=== PATIENT | male | born 1935 | race Caucasian/White ===

== ENCOUNTER 2023-06-26 15:11 | Observation (INO) | payer OTHER, SELFPAY ==
[2023-06-26] VITALS (14 sets, daily range): BP systolic 97–126; BP diastolic 47–93; BMI 26.0; BMI 26.3
--- NOTE | 2023-06-26 09:46 | ED.GENMED ---
History of Present Illness
General
Chief Complaint: Abdominal Symptoms
Time Seen by Provider: 06/26/23 09:28
Travel History
Have you had any contact with someone who has COVID-19?: No
Do you have any symptoms of coronavirus? Fever > 100 degrees, chills, cough, shortness of breath, sore throat, loss of taste or smell, muscle aches, or headache?: No
History of Present Illness
History of Present Illness:
88-year-old male with history of A-fib, GERD, hypertension, and hypothyroidism presents to the emergency department for evaluation of intractable nausea, vomiting, and diarrhea for the past 3 days. Over the past 48 hours he has become increasingly
disoriented. He is reporting generalized upper abdominal pain as well. Spouse did note some coughing and nasal congestion associated with the symptoms. No reported fevers at home. She notes that he does have underlying esophageal achalasia and
most recently underwent Botox injections of the esophagus in March
Review of Systems
Review of Systems
Allergies reviewed?: Yes
All Other Systems: ROS reviewed and negative except as documented in HPI and ROS
Phy Exam
Physical Exam
Physical Exam:
GEN: Well appearing, NAD, WDWN
Eyes: PERRLA, EOMs intact, no scleral icterus
HENT: NCAT, oral mucosa moist
Lungs: CTAB, no wheezes, rales, rhonchi, normal chest wall excursion
Cardiac: RRR, no M/R/G, no peripheral edema. Radial pulses 2+ bilat
Abdomen: Soft, mild-moderate RUQ/epigastric tenderness, no rigidity
Neuro: AO x 3
MSK: No gross deformity or ecchymosis. No edema. No digital clubbing
Skin: No rashes, petechiae. Normal color, no pallor or jaundice.
Psych: Calm, cooperative, proper hygiene
Course
Orders/Labs/Results
Orders:
Orders
06/26/23 09:38
0.9% Sodium Chloride 1000 ml [Nss] 1,000 ml IV BOLUS
06/26/23 09:39
Urinalysis Reflex To Culture Urgent
06/26/23 10:10
COVID-19 Antigen Urgent
Source: Nasal Swab
Complete Blood Count/With Diff Urgent
Comprehensive Metabolic Panel Urgent
Lactic Acid Urgent
Lipase Urgent
Influenza A+B Rapid Molecular Urgent
NUZHAT Source: Nasal Swab
Specimen Description:
06/26/23 11:26
CT Abd/Pel (IV only)-DH only Urgent
Comment:
Reason For Exam: upper abd pain, N/V/D
06/26/23 13:06
Ondansetron Injectable [Zofran] 4 mg IV NOW STA
Pantoprazole [Protonix IV] 40 mg IV NOW STA
Sucralfate Suspension [Carafate Suspension] 1 gm PO NOW STA
Abnormal Lab Results
06/26/23
10:10
WBC 14.6 H 10^3/uL
(4.8-10.8)
MPV 11.6 H fL
(7.4-10.4)
Abs Immat Gran (auto) 0.1 H 10^3/uL
(0-0.05)
Absolute Neuts (auto) 12.3 H 10^3/uL
(1.4-6.5)
Absolute Lymphs (auto) 1.0 L 10^3/uL
(1.2-3.4)
Absolute Monos (auto) 1.2 H 10^3/uL
(0.1-0.6)
Neutrophils % 84.5 H %
(42.2-75.2)
Lymphocytes % 6.6 L %
(20.5-51.1)
BUN 39 H mg/dl
(9-20)
Glucose 112 H mg/dl
(70-99)
Lactic Acid 2.1 H mmol/L
(0.7-2.0)
AST 62 H U/L
(17-59)
06/26/23 10:10
06/26/23 10:10
Vital Signs
Initial and Last Documented VS:
Initial Vital Signs
Temp Pulse Resp BP Pulse Ox
98.7 F 70 16 116/67 98
06/26/23 09:05 06/26/23 09:05 06/26/23 09:05 06/26/23 09:05 06/26/23 09:05
Last Documented Vital Signs
Temp Pulse Resp BP Pulse Ox
98.7 F 73 18 106/64 97
06/26/23 09:05 06/26/23 12:00 06/26/23 12:00 06/26/23 12:00 06/26/23 10:15
MDM/Problems Addressed
MDM/Problems Addressed:
88-year-old male presents with symptoms of nausea vomiting diarrhea for the past several days. Workup is suggestive of viral etiology such as gastroenteritis particular given lack of acute pathology on CT scan. Patient was given a p.o. trial but
continued to have blood-tinged vomiting concerning for a component of esophagitis. Given his cognitive changes and his difficulty with tolerating p.o. fluids we will admit the patient to the hospital service for further IV fluids and management
with PPIs.
*Critical Care Note
Total Time (30-74mins, 75-104mins- exclusive of procedures): Not Applicable
ED Attending Note
-
Portions of this chart may have been created with voice recognition software.� Occasional wrong word or��sound alike� substitutions may have occurred due to the inherent limitations of voice recognition software.
Discharge Plan
Departure
Patient Disposition: Admit
Date of Disposition: 06/26/23
Time of Disposition: 13:35
Admit to: Med/Surg
Presentation/result/management discussed w/ accepting MD/DO: Hospitalist
Discharge Problem:
Gastroenteritis, Esophagitis
Prescriptions:
No Action
sotalol 80 mg Tablet
80 mg PO BID
omeprazole 40 mg Capsule,Delayed Release(Dr/Ec)
40 mg PO DAILY
levothyroxine 25 mcg Tablet
25 mcg PO DAILY
pravastatin 20 mg Tablet
20 mg PO QPM
cholecalciferol (vitamin D3) [Vitamin D3] 125 mcg (5,000 unit) Tablet
125 mcg PO DAILY
Eliquis 5 mg Tablet
5 mg PO BID
Centrum Adult 50 Plus 80 mcg Tablet,Chewable
1 tab PO DAILY
PreserVision AREDS-2 250-90-40-1 mg Tablet,Chewable
1 tab PO BID
cyanocobalamin (vitamin B-12) [Vitamin B-12] 1,000 mcg Tablet
1,000 mcg PO DAILY
Referrals:
Schuyler Trejo CRNP [Family Provider] -
Interventions
Interventions:
*General Assessment Last Done: 06/26/23 09:51
ED- Fall Risk Assessment Last Done: 06/26/23 09:51
*ED COVID-19 Vaccine History Last Done: 06/26/23 09:05
NR-Oxtwnx-Agzoamfojg Assessment Last Done: 06/26/23 09:51
[2023-06-26] MEDS: NSS 1000 IV ×3 (10:05→18:52)
[2023-06-26 10:23] LABS: % Basophils 0.1 % (0-2); % Eosinophils 0.1 % (0-6); % Immature Granulocytes 0.3 % (0-0.5); % Lymphocytes 6.6 % (20.5-51.1); % Monocytes 8.4 % (1.7-9.3); % Neutrophils 84.5 % (42.2-75.2); Absolute Immature Granulocytes 0.1 10^3/uL (0-0.05); Absolute Monocytes 1.2 10^3/uL (0.1-0.6); Absolute Neutrophils 12.3 10^3/uL (1.4-6.5); Hematocrit 46.4 % (39.0-52.0); Hemoglobin 15.5 g/dL (13.0-18.0); Mean Corp Hgb Conc. 33.4 g/dL (33.0-37.0); Mean Corpuscular Hgb 28.5 pg (27.0-31.0); Mean Corpuscular Volume 85.3 fL (80.0-94.0); Mean Platelet Volume 11.6 fL (7.4-10.4); Nucleated Red Blood Cells % 0 % (-); Platelet Count 149 10^3/uL (130-400); Red Blood Cell Count 5.44 10^6/uL (4.70-6.10); Red Cell Dist. Width 14.5 % (11.5-14.5); White Blood Cell Count 14.6 10^3/uL (4.8-10.8)
[2023-06-26 10:33] LABS: Lactic Acid 2.1 mmol/L (0.7-2.0)
[2023-06-26 10:34] LABS: ALT (SGPT) 29 U/L (0-50); AST (SGOT) 62 U/L (17-59); Albumin 4.6 g/dl (3.5-5.0); Alkaline Phosphatase 87 U/L (38-126); Blood Urea Nitrogen 39 mg/dl (9-20); Calcium 9.8 mg/dl (8.4-10.2); Carbon Dioxide 25 mmol/L (22-30); Chloride 104 mmol/L (98-107); Estimated Creatinine Clearance 45 ml/min; Glucose 112 mg/dl (70-99); Lipase 116 U/L (23-300); Potassium 3.9 mmol/L (3.5-5.1); Sodium 138 mmol/L (135-145); Total Bilirubin 0.7 mg/dl (0.2-1.3); Total Protein 7.5 g/dl (6.3-8.2); eGFR > 60.00
[2023-06-26 10:37] LABS: COVID-19 Antigen Negative (Negative)
[2023-06-26] MEDS: ZOFRAN 4 MG IV (13:31)
[2023-06-26] MEDS: PROTONIX IV 40 MG IV ×2 (13:31→20:18)
[2023-06-26] MEDS: CARAFATE SUSPENSION 1 GM PO (13:31)
--- NOTE | 2023-06-26 15:04 | HPS.HSE ---
Addendum entered and electronically signed by Tanmay Newby MD 06/26/23 15:25:
88-year-old male with a past medical history of esophageal achalasia on Botox injections, paroxysmal atrial fibrillation on Eliquis, hypertension, hypothyroidism, and prostate cancer status post prostatectomy presents with a 3-day history of nausea,
vomiting, diarrhea, and crampy abdominal pain. CT of the abdomen and pelvis is concerning for possible esophagitis.
Suspect he may have viral gastroenteritis. He is COVID-negative, influenza negative.
Will check stool studies, provide supportive care with IV fluids, antiemetics as needed, trial of clear liquid diet.
He did have some blood-tinged vomit. Will hold his Eliquis tonight, give Protonix 40 mg IV twice daily, trend hemoglobin.
I have personally seen and examined the patient, and agree with the plan of care as documented by Marci Zimmer PA-C.
Advance care planning discussed, patient is a full code.
All other issues as outlined by the advanced care practitioner.
Original Note:
Family Physician
-
Family Physician: AKILAH Duque
Chief Complaint
-
Nausea, Vomiting and Diarrhea
History of Present Illness
Pt is an 88yo M with a past medical history of HTN, HLD, Paroxysmal AFib, Hypothyroidism, Esophageal Achalasia, and GERD who is presenting to the ED complaining of intractable nausea, vomiting and diarrhea x 3 days. Pt states he began feeling
nauseous and started vomiting several times each day, shortly after he began experiencing severe diarrhea. He states it happens all the time and he has been unable to eat anything for 3 days and is not tolerating sips well. He reports waxing/waning
abdominal discomfort. He denies fever or sweats. He denies recent sick contacts or antibiotic use.
Medical History
Past Medical History
Past Medical History: Reports Other
Additional Past Medical History:
Paroxysmal Atrial Fibrillation
Essential Hypertension
Hypothyroidism
Achalasia s/p Botox Injection
Prostate Cancer
Past Surgical History: Reports Other
Additional Past Surgical History:
Radical Prostatectomy
Appendectomy
Social History
Tobacco: Non-smoker
Alcohol: Occasional
Drug: None
Living: With Family
Family History
Family History: Not pertinent
Allergies / Home Medications
Allergies reflects when Allergies were last updated in [facility].
Home Medications with original date entered in [facility]
Allergy/Medication List:
Allergies
Allergy/AdvReac Type Severity Reaction Status Date / Time
codeine Allergy Unknown Verified 06/26/23 09:09
naproxen Allergy Unknown Verified 06/26/23 09:09
Home Medications
apixaban 5 mg tablet (Eliquis) 5 mg PO BID Blood Clot Prevention/Tx 04/11/23
cholecalciferol (vitamin D3) 125 mcg (5,000 unit) tablet (Vitamin D3) 125 mcg PO DAILY Supplement 04/11/23
levothyroxine 25 mcg tablet 25 mcg PO DAILY Thyroid 04/11/23
multivitamin with minerals-folic acid 80 mcg chewable tablet (Centrum Adult 50 Plus) 1 tab PO DAILY Supplement 04/11/23
omeprazole 40 mg capsule,delayed release 40 mg PO DAILY Gastrointestinal Issue 04/11/23
pravastatin 20 mg tablet 20 mg PO QPM High Cholesterol 04/11/23
sotalol 80 mg tablet 80 mg PO BID Arrhythmia 04/11/23
vit C 250 mg-E 90 mg-zinc 40 mg-copper 1 lw-pyuqmf-kwsihs chew tablet (PreserVision AREDS-2) 1 tab PO BID Supplement 04/11/23
cyanocobalamin (vitamin B-12) 1,000 mcg tablet (Vitamin B-12) 1,000 mcg PO DAILY Supplement 06/26/23
Review of Systems
-
A 12 point ROS was completed and negative except as noted: Yes
Constitutional: Denies Fever
Respiratory: Denies Cough or Trouble Breathing
Cardiac: Denies Chest Pain or Palpitations
Abdomen/GI: Reports See HPI
Physical Exam
Vital Signs
Vital Signs
Temp Pulse Resp BP Pulse Ox
98.7 F 74 22 98/62 97
06/26/23 09:05 06/26/23 14:00 06/26/23 14:00 06/26/23 13:52 06/26/23 10:15
Physical Exam
General: Comfortable and Conversant
HEENT: NormoCephalic, Anicteric and Atraumatic
Respiratory: Clear and Non Labored Respirations
Cardiac: S1/S2 and Irregular Rhythm; No Tachycardia
GI: Soft and Tender (Suprapubic region without rebound or guarding)
Rectal: Deferred by Provider
Musculoskeletal: No Clubbing, No Cyanosis and No Edema
Skin: Warm and Dry
Neuro: Awake, Alert and Nonfocal/grossly intact
Laboratory Results
-
06/26/23 10:10
06/26/23 10:10
Laboratory Results
Lactic Acid 2.1 mmol/L (0.7-2.0) H 06/26/23 10:10
Total Bilirubin 0.7 mg/dl (0.2-1.3) 06/26/23 10:10
AST 62 U/L (17-59) H 06/26/23 10:10
ALT 29 U/L (0-50) 06/26/23 10:10
Alkaline Phosphatase 87 U/L (38-126) 06/26/23 10:10
Lipase 116 U/L (23-300) 06/26/23 10:10
Data Reviewed
-
CT Scan: Report Reviewed by me
Lab Data: Labs Reviewed by me
Impression/Plan
-
Nausea / Vomiting / Diarrhea, likely viral gastroenteritis
-Check stool studies
-Allow clear liquids
-Continue IVFs
-Continue anti-emetics
-Continue Protonix
Paroxysmal Atrial Fibrillation
-Patient currently in rate controlled a-fib - Monitor on Telemetry
-Hold Eliquis tonight due to noted emesis with blood streaking with plans to resume tomorrow is no further episodes
-Continue Sotalol for rhythm control
Hyperlipidemia
-Resume statin when able to tolerate
Hypothyroidism
-Continue levothyroxine
Achalasia s/p Botox Injection
Hx Prostate Cancer s/p Radical Prostatectomy
DVT proph: SCDs
Code Status: Full Code
--- NOTE | 2023-06-26 16:01 | CM ---
CM met with pt, spouse and dtr bedside
Pt resides with his spouse in [place] with [address]
Pt is independent with his ADLs with use of a SPC
VN and SNF hx denied
Spouse notes occasional forgetfulness
PCPeSnia Cox
Jaxon Barnes
Plan for admission under OBS
PHILIPPE completed- copy provided
Discharge Disposition- home, follow for needs
[2023-06-26] MEDS: NSS (PRESERVATIVE FREE) 10 ML IV (20:18)
[2023-06-27 03:15] VITALS: BP 105/50
[2023-06-27 05:06] LABS: Hematocrit 35.9 % (39.0-52.0); Hemoglobin 12.3 g/dL (13.0-18.0); Mean Corp Hgb Conc. 34.3 g/dL (33.0-37.0); Mean Corpuscular Hgb 29.1 pg (27.0-31.0); Mean Corpuscular Volume 84.9 fL (80.0-94.0); Mean Platelet Volume 11.3 fL (7.4-10.4); Platelet Count 102 10^3/uL (130-400); Red Blood Cell Count 4.23 10^6/uL (4.70-6.10); Red Cell Dist. Width 14.5 % (11.5-14.5); White Blood Cell Count 8.8 10^3/uL (4.8-10.8)
[2023-06-27] MEDS: SYNTHROID 25 MCG PO (05:51)
[2023-06-27 05:53] LABS: Blood Urea Nitrogen 26 mg/dl (9-20); Calcium 8.1 mg/dl (8.4-10.2); Carbon Dioxide 23 mmol/L (22-30); Chloride 109 mmol/L (98-107); Estimated Creatinine Clearance 62 ml/min; Glucose 87 mg/dl (70-99); Potassium 3.6 mmol/L (3.5-5.1); Sodium 135 mmol/L (135-145); eGFR > 60.00
[2023-06-27 06:00] VITALS: BMI 26.4
[2023-06-27] MEDS: NSS 1000 IV (06:22)
[2023-06-27 07:20] VITALS: BP 101/64
[2023-06-27] MEDS: BETAPACE 80 MG PO (08:27)
[2023-06-27] MEDS: NSS (PRESERVATIVE FREE) 10 ML IV (08:28)
[2023-06-27] MEDS: PROTONIX IV 40 MG IV (08:28)
--- NOTE | 2023-06-27 10:11 | W.PN.HOSP.TC ---
Today's Communication/Plan
-
Advance to low residue
Assessment / Plan
Assessment / Plan
Nausea / Vomiting / Diarrhea, likely viral gastroenteritis
-Vomiting/diarrhea resolved, tolerated CLD
-Continue PPI, IV fluids, advance to low residue
Paroxysmal Atrial Fibrillation
-Patient currently in rate controlled a-fib
-Resume Eliquis
-Continue Sotalol for rhythm control
Hyperlipidemia
-Resumed statin when able to tolerate
Hypothyroidism
-Continue levothyroxine
Achalasia s/p Botox Injection
Hx Prostate Cancer s/p Radical Prostatectomy
Hearing loss
DVT proph: eliquis
Code Status: Full Code
Updated on phone 06/27
Physical Exam
General: Elderly, no acute distress
HEENT: Normocephalic, Atraumatic, EOMI, MMM
Respiratory: Clear to Auscultation bilaterally
Cardiac: Normal S1/S2, Regular Rate and irregularly irregular rhythm
GI: Soft, Nontender, Nondistended, Normal Bowel Sounds
Anticipated Discharge: Within 24 hours
Subjective/Interval History
-
Date of Service: June 27, 2023
Diarrhea and vomiting resolved. He tolerated his clear liquid diet.
Objective Data
-
Labs:
Laboratory Results
06/27/23
04:39
WBC 8.8
Hgb 12.3 L D
Hct 35.9 L
Plt Count 102 L D
Sodium 135
Potassium 3.6
Chloride 109 H
Carbon Dioxide 23
BUN 26 H
Creatinine 0.8
Glucose 87
Calcium 8.1 L D
Vital Signs:
Vital Signs
Temp Pulse Resp BP Pulse Ox
97.9 F 84 18 101/64 97
06/27/23 07:20 06/27/23 08:27 06/27/23 07:20 06/27/23 08:27 06/27/23 07:20
I&O
06/26/23 06/27/23 06/28/23
06:59 06:59 06:59
Intake Total 900 / 900
Balance 900 / 900
[2023-06-27 10:38] VITALS: BP 132/72; PULSE 78; O2SAT 96
[2023-06-27 11:12] VITALS: BP 122/71
[2023-06-27 15:06] VITALS: BP 120/72; PULSE 95; O2SAT 99
[2023-06-27 15:14] VITALS: BP 120/72
--- NOTE | 2023-06-27 15:24 | CM ---
PT OT no skilled needs.
Tolerating low residual diet.
Spoke with Vianca she jason she can drive him home today.
MD notified of above .
Offered VN declined need .
PLAN Home no needs
--- NOTE | 2023-06-27 15:25 | W.DCSUMMARY ---
Discharge Summary
Discharge Data
Date of Admission: 06/26/23
Date of Discharge: 06/27/23
-
Pending Results: No
Hospital Course
Discharge diagnosis:
Gastroenteritis, suspect viral
Paroxysmal atrial fibrillation on Eliquis
Hypothyroidism
Hyperlipidemia
Achalasia status post Botox injections
History of prostate cancer status post radical prostatectomy
CT abdomen and pelvis:
1. Mild bowel wall thickening at the gastroesophageal junction, which may be related to esophagitis. Please correlate for upper GI symptoms, and if indicated with upper GI endoscopy.
2. No evidence of intestinal obstruction, nephrolithiasis, hydronephrosis, cholecystitis, or abscess formation.
3. Fine reticular interstitial thickening within the right middle lobe and lingular segment, which may be related to interstitial fibrosis or mild senescent change. Consider nonemergent dedicated CT thorax for further characterization.
4. Severe coronary arterial calcification. Please correlate with symptoms of and risk factors for coronary artery disease, with further workup as clinically appropriate.
Hospital course:
88-year-old male with a past medical history of esophageal achalasia on Botox injections, paroxysmal atrial fibrillation on Eliquis, hypertension, hypothyroidism, and prostate cancer status post prostatectomy presents with a 3-day history of nausea,
vomiting, diarrhea, and crampy abdominal pain. Patient was afebrile, he did not have a leukocytosis. He denies any recent antibiotic use.
Patient was placed in observation for probable viral gastroenteritis. He was COVID-negative, influenza negative. He did not have any bowel movements or vomiting after admission. Stool studies could not be sent since he did not have any stools
while in the hospital. He tolerated a low residue diet. He was seen by PT, and was independent. He is medically stable for discharge. He needs to follow-up with his primary care doctor 1 week.
Disposition: Home self-care
Discharge planning: Required 38 minutes
�
Discharge Plan
-
Patient Disposition: Home (Routine Discharge)
Discharge Diagnosis/Procedures: Gastroenteritis
Condition: Fair
Diet: Low Residue
Activity: As tolerated
Driving Restrictions: As prior to admission
Instructions: Viral Gastroenteritis, Adult (DC)
Referrals:
Schuyler Trejo CRNP [Family Provider] - in one week
Prescriptions:
Continued
sotalol 80 mg Tablet
80 mg PO BID
omeprazole 40 mg Capsule,Delayed Release(Dr/Ec)
40 mg PO DAILY
levothyroxine 25 mcg Tablet
25 mcg PO DAILY
pravastatin 20 mg Tablet
20 mg PO QPM
cholecalciferol (vitamin D3) [Vitamin D3] 125 mcg (5,000 unit) Tablet
125 mcg PO DAILY
Eliquis 5 mg Tablet
5 mg PO BID
Patient Comments:
patient using mail order
Centrum Adult 50 Plus 80 mcg Tablet,Chewable
1 tab PO DAILY
PreserVision AREDS-2 250-90-40-1 mg Tablet,Chewable
1 tab PO BID
cyanocobalamin (vitamin B-12) [Vitamin B-12] 1,000 mcg Tablet
1,000 mcg PO DAILY
Discharge Orders:
Discharge Patient (As Directed); Ordered 06/27/23
Ordered By: Tanmay Newby
Discharge Date and Time
Discharge Date/Time: 06/27/23 16:52
== END 2023-06-27 16:52 | disposition home or self-care (01) ==
LOC: 2 NORTH 15:11
PROVIDERS: Physician Assistant; Physician Assistant Medical; ADMITTING PHYSICIAN Family Medicine; EMERGENCY PHYSICIAN Emergency Medicine; FAMILY PHYSICIAN Nurse Practitioner Family
DX: R11.2 Nausea with vomiting, unspecified (principal); R19.7 Diarrhea, unspecified; R10.10 Upper abdominal pain, unspecified; K21.9 Gastro-esophageal reflux disease without esophagitis; I48.0 Paroxysmal atrial fibrillation; I10 Essential (primary) hypertension; E03.9 Hypothyroidism, unspecified; K22.0 Achalasia of cardia; R41.0 Disorientation, unspecified; H91.90 Unspecified hearing loss, unspecified ear; R05.9 Cough, unspecified; R09.81 Nasal congestion; Z79.01 Long term (current) use of anticoagulants; Z79.890 Hormone replacement therapy; Z85.46 Personal history of malignant neoplasm of prostate; Z90.79 Acquired absence of other genital organ(s); Z11.52 Encounter for screening for COVID-19; Z88.6 Allergy status to analgesic agent; Z88.5 Allergy status to narcotic agent
CPT/HCPCS: 74177; 80048; 80053; 83605; 83690; 83735; 85025; 85027; 87502; 87811; 93005; 96361; 96374; 96375; 97162; 97166; 97530; 99285; G0378; Q9967

== ENCOUNTER 2023-06-28 11:38 | Observation (INO) | payer OTHER, SELFPAY ==
[2023-06-28] VITALS (13 sets, daily range): BP systolic 111–138; BP diastolic 55–73; PULSE 77–94; BMI 27.3; BMI 27.0
[2023-06-28 06:55] LABS: % Basophils 0.3 % (0-2); % Eosinophils 1.3 % (0-6); % Lymphocytes 13.2 % (20.5-51.1); % Monocytes 14.8 % (1.7-9.3); % Neutrophils 69.4 % (42.2-75.2); Absolute Eosinophils 0.1 10^3/uL (0-0.7); Absolute Immature Granulocytes 0.1 10^3/uL (0-0.05); Absolute Lymphocytes 0.8 10^3/uL (1.2-3.4); Absolute Monocytes 0.9 10^3/uL (0.1-0.6); Absolute Neutrophils 4.3 10^3/uL (1.4-6.5); Hematocrit 38.1 % (39.0-52.0); Hemoglobin 13.1 g/dL (13.0-18.0); Mean Corp Hgb Conc. 34.4 g/dL (33.0-37.0); Mean Corpuscular Hgb 28.7 pg (27.0-31.0); Mean Corpuscular Volume 83.4 fL (80.0-94.0); Mean Platelet Volume 11.5 fL (7.4-10.4); Nucleated Red Blood Cells % 0 % (-); Platelet Count 106 10^3/uL (130-400); Red Blood Cell Count 4.57 10^6/uL (4.70-6.10); Red Cell Dist. Width 14.6 % (11.5-14.5); White Blood Cell Count 6.1 10^3/uL (4.8-10.8)
--- NOTE | 2023-06-28 07:16 | ED.GENMED ---
History of Present Illness
General
Chief Complaint: Weakness
Source: patient, records and spouse
Exam Limitations: none
Time Seen by Provider: 06/28/23 06:23
Nursing documentation reviewed up to this point in time: agreed with
Travel History
Have you had any contact with someone who has COVID-19?: No
Do you have any symptoms of coronavirus? Fever > 100 degrees, chills, cough, shortness of breath, sore throat, loss of taste or smell, muscle aches, or headache?: No
History of Present Illness
History of Present Illness:
88 male presents with weakness admitted recently with gastroenteritis nausea vomiting some diarrhea discharged yesterday after tolerated lunch went home had multiple episodes of profuse malodorous watery stools, some confusion, no fevers,
generalized weakness, no foreign travel patient spouse is unclear if he has been on antibiotics recently has not had any vomiting no chest pain, he has chronic A-fib is on Eliquis his hypertension
Past History
Past History
ED Past Medical History: Arrthythmia and HTN
Social History
Tobacco: Non-smoker
Alcohol: None
Drug: None
Personal:
Living: with family
Employment: Retired
Review of Systems
Review of Systems
All Other Systems: Not applicable
Constitutional: Reports fatigue; Denies fever
EENT: Reports no symptoms
Respiratory: Reports no symptoms
Cardiac: Reports no symptoms
ABD/GI: Reports diarrhea
: Reports no symptoms
Neurological: Reports dizzy and weakness
Endocrine: Reports no symptoms
Phy Exam
Physical Exam
Physical Exam:
Physical Exam
General: 88 male mild distress
Neck: Dry lip
Heart: Irregular
Lungs: no acute respiratory distress. clear bilaterally
Abdomen: Soft nontender
Neuro: alert and oriented. no focal neurological deficits
Skin: no rash
Psychiatric: well kept. interactive and cooperative
Extremities: no edema.
Course
Orders/Labs/Results
Orders:
Orders
06/28/23 06:28
EKG [Electrocardiogram (*1)] Urgent
Reason for Study: Fatigue / Weakness
EKG- Treatment ONCE
06/28/23 06:36
Complete Blood Count/With Diff Urgent
06/28/23 06:43
Troponin I Urgent
06/28/23 06:59
0.9% Sodium Chloride 1000 ml [Nss] 1,000 ml IV BOLUS
06/28/23 07:21
CMP [Comprehensive Metabolic Panel] Stat
06/28/23 08:04
Potassium Chloride [KCl] 20 meq PO NOW STA
06/28/23 09:30
0.9% Sodium Chloride 1000 ml [Nss] 1,000 ml IV 150 mls/hr
06/28/23 10:47
Admit/Transfer Patient As Directed
Co-Sign Provider:
Level of Care: Observation services
Assign to:: Medical/Surgical
Physician / Group: nahid hickman
Diagnosis: Gastroenteritis
06/28/23 10:48
Code Status As Directed
Resuscitation Status: Do not resuscitate
Reached after discussion with pt or family/Healthcare POA: Yes
DNR Bracelet Application ONCE
06/28/23 11:00
Pantoprazole [Protonix] 40 mg PO DAILY
06/28/23 12:00
Flush (0.9% Sodium Chloride) [Flush (Nss)] See Dose Instructions IV PER PROTOCOL
06/28/23 12:20
0.9% Sodium Chloride 1000 ml [Nss] 1,000 ml IV 75 mls/hr
Acetaminophen [Tylenol] 650 mg PO Q4HPRN PRN
Lidocaine [Lidocaine 4% Patch] 1 patch TOPICAL DAILY
Ondansetron Injectable [Zofran] 4 mg IV Q6HPRN PRN
06/28/23 12:20
Activity As Directed
Activity Level: Ambulate
Vital Signs As Directed
Frequency: Per unit guidelines
06/28/23 13:47
Stool Culture Urgent
NUZHAT Source: Feces/Stool
Specimen Description:
Date Specimen was Collected: 06/28/23
Time Specimen was Collected: 13:42
06/28/23 13:48
CDIFF [C difficile Antigen & Toxins] Urgent
NUZHAT Source: Feces/Stool
Specimen Description:
Date Specimen was Collected: 06/28/23
Time Specimen was Collected: 13:42
Norovirus by PCR Urgent
NUZHAT Source: Feces/Stool
Specimen Description:
Date Specimen was Collected: 06/28/23
Time Specimen was Collected: 13:42
Stool For WBC Urgent
NUZHAT Source: Feces/Stool
Specimen Description:
Date Specimen was Collected: 06/28/23
Time Specimen was Collected: 13:42
06/28/23 18:00
Pravastatin Sodium [Pravachol] 20 mg PO QPM
06/28/23 20:00
Apixaban [Eliquis] 5 mg PO BID
Sotalol [Betapace] 80 mg PO BID
06/29/23 04:40
Basic Metabolic Panel IN AM
Complete Blood Count/With Diff IN AM
Magnesium IN AM
06/29/23 08:00
Levothyroxine [Synthroid] 25 mcg PO DAILY@0700
Abnormal Lab Results
06/28/23 06/28/23
06:36 07:21
RBC 4.57 L 10^6/uL
(4.70-6.10)
Hct 38.1 L %
(39.0-52.0)
RDW 14.6 H %
(11.5-14.5)
Plt Count 106 L 10^3/uL
(130-400)
MPV 11.5 H fL
(7.4-10.4)
Abs Immat Gran (auto) 0.1 H 10^3/uL
(0-0.05)
Absolute Lymphs (auto) 0.8 L 10^3/uL
(1.2-3.4)
Absolute Monos (auto) 0.9 H 10^3/uL
(0.1-0.6)
Immature Gran % 1.0 H %
(0-0.5)
Lymphocytes % 13.2 L %
(20.5-51.1)
Monocytes % 14.8 H %
(1.7-9.3)
Potassium 3.4 L mmol/L
(3.5-5.1)
Chloride 110 H mmol/L
(98-107)
Calcium 8.3 L mg/dl
(8.4-10.2)
Total Protein 5.4 L D g/dl
(6.3-8.2)
Albumin 3.2 L g/dl
(3.5-5.0)
06/28/23 06:36
06/28/23 07:21
Vital Signs
Initial and Last Documented VS:
Initial Vital Signs
Temp Pulse Resp BP Pulse Ox
97.6 F 76 19 115/64 98
06/28/23 06:31 06/28/23 06:31 06/28/23 06:31 06/28/23 06:31 06/28/23 06:31
Last Documented Vital Signs
Temp Pulse Resp BP Pulse Ox
97.5 F 79 14 112/62 96
06/29/23 11:13 06/29/23 11:13 06/29/23 11:13 06/29/23 11:13 06/29/23 11:13
MDM/Problems Addressed
Differential Diagnosis Includes:
Enteritis C. difficile norovirus dehydration electrolyte abnormality colitis
MDM/Problems Addressed:
Diarrhea
Chronic conditions affecting care: Arrhythmia
Acute Exacerbation and/or Progression of Chronic Illness: Arrhythmia
*Pulse Oximetry
Patient hypoxic: no
*EKG
Interpreted by ED Provider?: Yes
Interpretation: abnormal
Comparison EKG: no changes
Heart Rate: 78
Rate: normal
Rhythm: a-fib
Ischemia: non-specific ST changes
*Parking Assistant Interpretation
Rate: normal
Interpretation: normal
Heart Rate: 78
Rhythm: a-fib
*Critical Care Note
Total Time (30-74mins, 75-104mins- exclusive of procedures): Not Applicable
Update Note
Update Note:
Update labs noted, patient still weak, receiving fluids low threshold to admit due to age, apparently was having quite a bit of copious diarrhea for past 12 hours
ED Attending Note
-
Portions of this chart may have been created with voice recognition software.� Occasional wrong word or��sound alike� substitutions may have occurred due to the inherent limitations of voice recognition software.
Discharge Plan
Departure
Patient Disposition: Admit
Date of Disposition: 06/28/23
Time of Disposition: 10:14
Admit to: Med/Surg
Presentation/result/management discussed w/ accepting MD/DO: Hospitalist
Patient with high blood pressure during this ER visit?: No
Condition: Fair
Covid-19: Not Applicable
Discharge Problem:
Gastroenteritis
Interventions
Interventions:
*Risk Screen - Suicide Last Done: 06/28/23 06:24
*General Assessment Last Done: 06/28/23 06:24
*Neglect/Abuse Screening Last Done: 06/28/23 06:24
ED- Fall Risk Assessment Last Done: 06/28/23 06:29
*ED COVID-19 Vaccine History Last Done: 06/28/23 06:24
*Nursing Disposition Last Done: 06/28/23 15:52
ED- Cardiac Assessment Last Done: 06/28/23 06:29
ED- Neurological Assessment Last Done: 06/28/23 06:29
ED- Pulmonary Assessment Last Done: 06/28/23 06:29
Discharge Date and Time
Discharge Date/Time: 06/28/23 15:53
[2023-06-28 07:22] LABS: Troponin I < 0.012 ng/ml
[2023-06-28] MEDS: NSS 1000 IV ×3 (07:23→13:57)
[2023-06-28 07:58] LABS: ALT (SGPT) 21 U/L (0-50); AST (SGOT) 36 U/L (17-59); Albumin 3.2 g/dl (3.5-5.0); Alkaline Phosphatase 63 U/L (38-126); Blood Urea Nitrogen 19 mg/dl (9-20); Calcium 8.3 mg/dl (8.4-10.2); Carbon Dioxide 24 mmol/L (22-30); Chloride 110 mmol/L (98-107); Estimated Creatinine Clearance 71 ml/min; Glucose 94 mg/dl (70-99); Potassium 3.4 mmol/L (3.5-5.1); Sodium 137 mmol/L (135-145); Total Bilirubin 0.6 mg/dl (0.2-1.3); Total Protein 5.4 g/dl (6.3-8.2); eGFR > 60.00
[2023-06-28] MEDS: KCL 20 MEQ PO (08:57)
--- NOTE | 2023-06-28 10:46 | HPS.HSE ---
Family Physician
-
Family Physician: AKILAH Duque
Chief Complaint
-
Profuse diarrhea
History of Present Illness
88-year-old male with a past medical history of HTN, HLD, Paroxysmal AFib, Hypothyroidism, Esophageal Achalasia, and GERD who was placed in observation in the hospital and discharged yesterday for probable viral gastroenteritis returns for continued
profuse diarrhea. Patient initially has been having nausea, vomiting, and diarrhea for 5 days. He was placed in observation on Monday. Stool studies were ordered, but could not be sent since he did not have a bowel movement during his hospital
stay. His vomiting had resolved. He tolerated a low residue diet, and was discharged. After discharge, reports profuse watery stools and weakness. He does report left upper quadrant abdominal pain. Denies vomiting, denies fever. No recent
antibiotic use. No sick contacts.
Medical History
Past Medical History
Past Medical History: Reports Other
Additional Past Medical History:
Paroxysmal Atrial Fibrillation
Essential Hypertension
Hypothyroidism
Achalasia s/p Botox Injection
Prostate Cancer
Past Surgical History: Reports Other
Additional Past Surgical History:
Radical Prostatectomy
Appendectomy
Social History
Tobacco: Non-smoker
Alcohol: Occasional
Drug: None
Living: With Family
Family History
Family History: Not pertinent
Allergies / Home Medications
Allergies reflects when Allergies were last updated in [employer].
Home Medications with original date entered in [employer]
Allergy/Medication List:
Allergies
Allergy/AdvReac Type Severity Reaction Status Date / Time
codeine Allergy Per GI Verified 06/28/23 06:33
Pre-Op
orders for
04/11/23
naproxen Allergy Per GI Verified 06/28/23 06:33
Pre-Op
orders for
04/11/23
Home Medications Table - record
Medication Instructions Recorded Confirmed
apixaban 5 mg tablet (Eliquis) 5 mg PO BID Blood Clot 04/11/23 06/28/23
Prevention/Tx
cholecalciferol (vitamin D3) 125 125 mcg PO DAILY Supplement 04/11/23 06/28/23
mcg (5,000 unit) tablet (Vitamin
D3)
levothyroxine 25 mcg tablet 25 mcg PO DAILY Thyroid 04/11/23 06/28/23
multivitamin with minerals-folic 1 tab PO DAILY Supplement 04/11/23 06/28/23
acid 80 mcg chewable tablet
(Centrum Adult 50 Plus)
omeprazole 40 mg capsule,delayed 40 mg PO DAILY Gastrointestinal 04/11/23 06/28/23
release Issue
pravastatin 20 mg tablet 20 mg PO QPM High Cholesterol 04/11/23 06/28/23
sotalol 80 mg tablet 80 mg PO BID Arrhythmia 04/11/23 06/28/23
vit C 250 mg-E 90 mg-zinc 40 1 tab PO BID Supplement 04/11/23 06/28/23
mg-copper 1 [id number] chew
tablet (PreserVision AREDS-2)
cyanocobalamin (vitamin B-12) 1,000 mcg PO DAILY Supplement 06/26/23 06/28/23
1,000 mcg tablet (Vitamin B-12)
Review of Systems
-
A 12 point ROS was completed and negative except as noted: Yes
Constitutional: Denies Fever
Respiratory: Denies Cough or Trouble Breathing
Cardiac: Denies Chest Pain or Palpitations
Abdomen/GI: Reports See HPI
Physical Exam
Vital Signs
Vital Signs
Temp Pulse Resp BP Pulse Ox
97.6 F 70 15 119/66 98
06/28/23 06:31 06/28/23 10:00 06/28/23 09:15 06/28/23 09:01 06/28/23 10:00
Physical Exam
General: No Apparent Distress
HEENT: NormoCephalic, Anicteric, Moist mucous membranes and Atraumatic
Respiratory: Clear
Cardiac: Irregular Rhythm
GI: Soft and Tender
Musculoskeletal: No Clubbing, No Cyanosis and No Edema
Skin: Warm and Dry
Neuro: AO x 3
Psych: Calm
Laboratory Results
-
06/28/23 06:36
06/28/23 07:21
Laboratory Results
Total Bilirubin 0.6 mg/dl (0.2-1.3) 06/28/23 07:21
AST 36 U/L (17-59) 06/28/23 07:21
ALT 21 U/L (0-50) 06/28/23 07:21
Alkaline Phosphatase 63 U/L (38-126) 06/28/23 07:21
Troponin I < 0.012 ng/ml 06/28/23 06:43
Impression/Plan
-
HPI: 88-year-old male with a past medical history of HTN, HLD, Paroxysmal AFib, Hypothyroidism, Esophageal Achalasia, and GERD who was placed in observation in the hospital and discharged yesterday for probable viral gastroenteritis returns for
continued profuse diarrhea. Patient initially has been having nausea, vomiting, and diarrhea for 5 days. He was placed in observation on Monday. Stool studies were ordered, but could not be sent since he did not have a bowel movement during his
hospital stay. His vomiting had resolved. He tolerated a low residue diet, and was discharged. After discharge, reports profuse watery stools and weakness. He does report left upper quadrant abdominal pain. Denies vomiting, denies fever.
No recent antibiotic use. No sick contacts.
#Probable viral gastroenteritis
Full liquid diet, IV fluids, PPI
Check stool white blood cell, C. difficile, norovirus, stool culture
#Hypokalemia
Replete, check Mg
Paroxysmal Atrial Fibrillation
-Patient currently in rate controlled a-fib
-Continue eliquis and Sotalol
Hyperlipidemia
-Continue statin
Hypothyroidism
-Continue levothyroxine
Achalasia s/p Botox Injection
Hx Prostate Cancer s/p Radical Prostatectomy
Hearing loss
DVT proph: eliquis
Code Status: Full Code
[2023-06-28] MEDS: PROTONIX 40 MG PO (13:56)
[2023-06-28] MEDS: LIDOCAINE 4% PATCH 1 PATCH TOPICAL (13:57)
--- NOTE | 2023-06-28 14:44 | PTCARENOTE ---
Spoke w/ Kamille on [facility] [address]. No delay report tubed to floor.
--- NOTE | 2023-06-28 15:07 | CM ---
CM reviewed medical records. PHILIPPE given. Patient confirmed demographics. Patient lives independently with in a [place] community. Patient denied history of VN and SNF. But stated that he really couldn't recall. Patient is active with his PCP.
Patient uses [facility] for medication services. Patient relies on a cane for ambulation.
PLAN: home no needs.
[2023-06-28] MEDS: PRAVACHOL 20 MG PO (17:55)
[2023-06-28] MEDS: BETAPACE 80 MG PO (20:44)
[2023-06-28] MEDS: ELIQUIS 5 MG PO (20:50)
[2023-06-29 03:21] VITALS: BP 124/70
[2023-06-29] MEDS: NSS 1000 IV (04:43)
[2023-06-29 05:09] LABS: % Basophils 0.7 % (0-2); % Eosinophils 2.3 % (0-6); % Immature Granulocytes 0.2 % (0-0.5); % Monocytes 13.8 % (1.7-9.3); Absolute Eosinophils 0.1 10^3/uL (0-0.7); Absolute Lymphocytes 0.7 10^3/uL (1.2-3.4); Absolute Monocytes 0.6 10^3/uL (0.1-0.6); Hemoglobin 11.4 g/dL (13.0-18.0); Mean Corp Hgb Conc. 34.5 g/dL (33.0-37.0); Mean Corpuscular Hgb 28.9 pg (27.0-31.0); Mean Corpuscular Volume 83.5 fL (80.0-94.0); Nucleated Red Blood Cells % 0 % (-); Red Blood Cell Count 3.95 10^6/uL (4.70-6.10); Red Cell Dist. Width 14.1 % (11.5-14.5); White Blood Cell Count 4.4 10^3/uL (4.8-10.8)
[2023-06-29 05:23] LABS: Blood Urea Nitrogen 11 mg/dl (9-20); Calcium 8.1 mg/dl (8.4-10.2); Carbon Dioxide 23 mmol/L (22-30); Chloride 108 mmol/L (98-107); Estimated Creatinine Clearance 71 ml/min; Glucose 85 mg/dl (70-99); Magnesium 1.9 mg/dl (1.6-2.3); Potassium 3.3 mmol/L (3.5-5.1); Sodium 137 mmol/L (135-145); eGFR > 60.00
[2023-06-29 07:15] VITALS: BP 129/70
[2023-06-29 07:26] LABS: Mean Platelet Volume 11.2 fL (7.4-10.4)
[2023-06-29 07:27] LABS: Platelet Count 81 10^3/uL (130-400)
--- NOTE | 2023-06-29 08:02 | W.PN.HOSP.TC ---
Today's Communication/Plan
-
Discharge today
Assessment / Plan
Assessment / Plan
HPI: 88-year-old male with a past medical history of HTN, HLD, Paroxysmal AFib, Hypothyroidism, Esophageal Achalasia, and GERD who was placed in observation in the hospital and discharged yesterday for probable viral gastroenteritis returns for
continued profuse diarrhea.� Patient initially has been having nausea, vomiting, and diarrhea for 5 days.� He was placed in observation on Monday.� Stool studies were ordered, but could not be sent since he did not have a bowel movement during his
hospital stay.� His vomiting had resolved. He tolerated a low residue diet, and was discharged.� After discharge, reports profuse watery stools and weakness.� He does report left upper quadrant abdominal pain.� Denies vomiting, denies fever.�
No recent antibiotic use.� No sick contacts.
#Probable viral gastroenteritis
Stool leukocytes are negative, C. difficile negative, norovirus negative, rest of stool culture pending
Stools are becoming more formed, last bowel movement was at 6am that was loose with formed elements
No bowel movements from 6am to 230pm, tolerating low residue diet
Discussed with , he may have intermittent episodes of loose stools/diarrhea -he does not need to return to the ER for this
Counseled that he needs to drink plenty of fluids, stay close to the bathroom, and take his potassium supplements
Medically stable for discharge today, follow-up with his PCP in 1 week
#Hypokalemia
Give potassium chloride 40 mEq every 6 hours x 2 prior to discharge today
Discharge on potassium chloride 20 mill equivalents daily for 4 days
Repeat BMP with PCP in 1 week
Paroxysmal Atrial Fibrillation
-Patient currently in rate controlled a-fib
-Continue eliquis and Sotalol
Hyperlipidemia
-Continue statin
Hypothyroidism
-Continue levothyroxine
Achalasia s/p Botox Injection
Hx Prostate Cancer s/p Radical Prostatectomy
Hearing loss
DVT proph: eliquis
Code Status: Full Code
Discussed with nursing staff and 06/29
Physical Exam
General: Frail, elderly, no acute distress
HEENT: Normocephalic, Atraumatic, EOMI, MMM
Respiratory: Clear to Auscultation bilaterally
Cardiac: Normal S1/S2, Regular Rate and Rhythm
GI: Soft, Nontender, Nondistended, Normal Bowel Sounds
Extremities: No Clubbing, Cyanosis, or Edema
Neuro: Forgetful
Anticipated Discharge: Today
Subjective/Interval History
-
Date of Service: June 29, 2023
Patient had an episode of diarrhea in the ER at 2 PM yesterday, another episode of diarrhea at 11 PM last night, and a loose stool at 5 AM this morning with formed elements. Denies nausea, denies vomiting. No abdominal pain. No fever. He is
tolerating solids.
Objective Data
-
Labs:
Laboratory Results
06/29/23
04:40
WBC 4.4 L
Hgb 11.4 L
Hct 33.0 L
Plt Count 81 L D
Sodium 137
Potassium 3.3 L
Chloride 108 H
Carbon Dioxide 23
BUN 11
Creatinine 0.7
Glucose 85
Calcium 8.1 L
Vital Signs:
Vital Signs
Temp Pulse Resp BP Pulse Ox
98.1 F 76 20 124/70 96
06/29/23 03:21 06/29/23 03:21 06/29/23 03:21 06/29/23 03:21 06/29/23 03:21
I&O
06/28/23 06/29/23 06/30/23
06:59 06:59 06:59
Intake Total 1760 / 1760
Output Total 300 / 300
Balance 1460 / 1460
[2023-06-29] MEDS: BETAPACE 80 MG PO (08:23)
[2023-06-29] MEDS: SYNTHROID 25 MCG PO (08:23)
[2023-06-29] MEDS: PROTONIX 40 MG PO (08:24)
[2023-06-29] MEDS: LIDOCAINE 4% PATCH 1 PATCH TOPICAL (08:24)
[2023-06-29] MEDS: ELIQUIS 5 MG PO (08:24)
[2023-06-29] MEDS: KCL 40 MEQ PO ×2 (09:25→14:03)
[2023-06-29 11:13] VITALS: BP 112/62
--- NOTE | 2023-06-29 12:41 | CM ---
Patient has been medically cleared for discharge from Observation status to home with no additional skilled needs. Family will transport home.
--- NOTE | 2023-06-29 16:03 | W.DCSUMMARY ---
Discharge Summary
Discharge Data
Date of Admission: 06/28/23
Date of Discharge: 06/29/23
-
Pending Results: No
Hospital Course
Discharge diagnosis:
Gastroenteritis, suspect viral
Hypokalemia
Paroxysmal atrial fibrillation on Eliquis
Hypothyroidism
Hyperlipidemia
Achalasia status post Botox injections
History of prostate cancer status post radical prostatectomy
CT abdomen and pelvis:
1. Mild bowel wall thickening at the gastroesophageal junction, which may be related to esophagitis. Please correlate for upper GI symptoms, and if indicated with upper GI endoscopy.
2. No evidence of intestinal obstruction, nephrolithiasis, hydronephrosis, cholecystitis, or abscess formation.
3. Fine reticular interstitial thickening within the right middle lobe and lingular segment, which may be related to interstitial fibrosis or mild senescent change. Consider nonemergent dedicated CT thorax for further characterization.
4. Severe coronary arterial calcification. Please correlate with symptoms of and risk factors for coronary artery disease, with further workup as clinically appropriate.
Hospital course:
88-year-old male with a past medical history of HTN, HLD, Paroxysmal AFib, Hypothyroidism, Esophageal Achalasia, and GERD who was placed in observation in the hospital and discharged the following day for probable viral gastroenteritis returns for
continued profuse diarrhea.� Patient initially has been having diarrhea for 5 days.� He was placed in observation on Monday.� Stool studies were ordered, but could not be sent since he did not have a bowel movement during his hospital stay.� He
tolerated a low residue diet, and was discharged.� After discharge, reports profuse watery stools.� He does report left upper quadrant abdominal pain.� Denies vomiting, denies fever.� No recent antibiotic use.� No sick contacts.
Patient was placed in observation for probable viral gastroenteritis.� He was COVID-negative, influenza negative.� Stool leukocytes are negative, C. difficile negative, norovirus negative, stool culture negative.
Patient had hypokalemia. This was repleted.
Patient never had any nausea or vomiting during his hospital stay. He tolerated a low residue diet. His diarrhea improved and was becoming more formed. His was counseled that he may continue to have diarrhea upon discharge. He needs to stay
close to the bathroom, and drink plenty of fluids. He will be discharged on potassium supplements. He needs to follow-up with his primary care doctor in 1 week for repeat BMP.
Disposition: Home self-care
Discharge planning: Required 39 minutes
Discharge Plan
-
Patient Disposition: Home (Routine Discharge)
Discharge Diagnosis/Procedures: Gastroenteritis, likely viral, hypokalemia, paroxysmal atrial fibrillation
Condition: Good
Diet: Low Residue
Activity: As tolerated
Driving Restrictions: As prior to admission
Blood Work: BMP with your primary care provider in 1 week
Activity Restrictions/Additional Instructions:
You may continue to have diarrhea or loose stools for a few more days.
Rest, drink plenty of fluids, take your potassium supplements as prescribed.
Follow-up with your primary care provider in 1 week.
Referrals:
Schuyler Trejo CRNP [Family Provider] - in one week
Prescriptions:
New
potassium chloride 10 mEq capsule, extended release
20 meq PO DAILY 4 Days Qty: 8 0RF
Continued
sotalol 80 mg Tablet
80 mg PO BID
omeprazole 40 mg Capsule,Delayed Release(Dr/Ec)
40 mg PO DAILY
levothyroxine 25 mcg Tablet
25 mcg PO DAILY
pravastatin 20 mg Tablet
20 mg PO QPM
cholecalciferol (vitamin D3) [Vitamin D3] 125 mcg (5,000 unit) Tablet
125 mcg PO DAILY
Eliquis 5 mg Tablet
5 mg PO BID
Patient Comments:
patient using mail order
Centrum Adult 50 Plus 80 mcg Tablet,Chewable
1 tab PO DAILY
PreserVision AREDS-2 250-90-40-1 mg Tablet,Chewable
1 tab PO BID
cyanocobalamin (vitamin B-12) [Vitamin B-12] 1,000 mcg Tablet
1,000 mcg PO DAILY
Discharge Orders:
Discharge Patient (As Directed); Ordered 06/29/23
Ordered By: Tanmay Newby
Discharge Date and Time
Discharge Date/Time: 06/29/23 15:10
== END 2023-06-29 15:10 | disposition home or self-care (01) ==
LOC: 2 NORTH 11:38
PROVIDERS: ADMITTING PHYSICIAN Family Medicine; EMERGENCY PHYSICIAN Emergency Medicine; FAMILY PHYSICIAN Nurse Practitioner Family
DX: R19.7 Diarrhea, unspecified (principal); R53.1 Weakness; I48.0 Paroxysmal atrial fibrillation; I10 Essential (primary) hypertension; E87.6 Hypokalemia; H91.90 Unspecified hearing loss, unspecified ear; K21.9 Gastro-esophageal reflux disease without esophagitis; R10.12 Left upper quadrant pain; K22.0 Achalasia of cardia; R41.0 Disorientation, unspecified; E78.5 Hyperlipidemia, unspecified; E03.9 Hypothyroidism, unspecified; Z85.46 Personal history of malignant neoplasm of prostate; Z66 Do not resuscitate; Z90.79 Acquired absence of other genital organ(s); Z88.6 Allergy status to analgesic agent; Z79.01 Long term (current) use of anticoagulants; Z88.5 Allergy status to narcotic agent; Z79.890 Hormone replacement therapy
CPT/HCPCS: 80048; 80053; 83735; 84484; 85025; 87045; 87046; 87077; 87324; 87427; 87449; 87798; 89055; 93005; 96360; 96361; 99285; G0378

== ENCOUNTER → 2023-07-18 14:57 | Outpatient (REF) | payer OTHER, SELFPAY | LOC: HWRAD 14:57 | PROVIDERS: ATTENDING PHYSICIAN Nurse Practitioner Family | DX: J84.10 Pulmonary fibrosis, unspecified (principal) | CPT/HCPCS: 71250 ==

== ENCOUNTER 2024-03-27 06:36 | Day surgery (SDC) | payer OTHER, SELFPAY ==
[2024-03-27 10:43] VITALS: BMI 27.1
[2024-03-27 10:44] VITALS: BP 139/54
[2024-03-27 10:58] VITALS: BMI 27.1
[2024-03-27 12:37] VITALS: BP 105/65
[2024-03-27 12:45] VITALS: BP 111/66
[2024-03-27 12:56] VITALS: BP 135/58
== END 2024-03-27 13:10 | disposition home or self-care (01) ==
LOC: GI 06:36
PROVIDERS: ATTENDING PHYSICIAN Internal Medicine Gastroenterology
DX: K22.0 Achalasia of cardia (principal)
CPT/HCPCS: 43236; J0585

== ENCOUNTER → 2025-02-21 09:37 | Outpatient (REF) | payer OTHER, SELFPAY | LOC: PAVMRI 09:37 | PROVIDERS: ATTENDING PHYSICIAN Psychiatry & Neurology Neurology; FAMILY PHYSICIAN Nurse Practitioner Family | DX: R41.3 Other amnesia (principal); F03.90 Unspecified dementia, unspecified severity, without behavioral disturbance, psychotic disturbance, mood disturbance, and anxiety; I48.91 Unspecified atrial fibrillation | CPT/HCPCS: 70553; A9575 ==